=== PATIENT | female | born 1975 | race Caucasian/White ===

== ENCOUNTER 2021-08-13 13:27 | Outpatient (CLI) | payer BC, SELFPAY ==
--- NOTE | ~2021-08-13 | US_ITS ---
EXAMINATION: US thyroid EXAM DATE: 08/13/2021 13:57 INDICATION: Localized Neck Swelling, Mass And lump. TECHNIQUE: Multiple grayscale and Doppler images of the thyroid were obtained (by a technologist who performed the scan) and subsequently reviewed. Individual nodules and recommendations may be reporte d in accordance with TI-RADS system as designated by the 2017 ACR White Paper TI-RADS committee. The re is no prior study for comparison. FINDINGS: The right thyroid lobe measures 5.2 x 1.4 x 1.6 cm, the left measuring 4.9 x 1.3 x 1.2 cm. There is h omogeneous thyroid echogenicity is expected amount of vascularity. No solid thyroid nodules. IMPRESSION: Mild thyromegaly. Reviewed, dictated and finalized at location A. ING PROPERTY MANAGER IMPRESSION: Mild thyromegaly.
== END 2021-08-13 13:28 | disposition home or self-care (01) ==
PROVIDERS: PCP Nurse Practitioner Family; Visit Provider Nurse Practitioner Family
DX: R22.1 Localized swelling, mass and lump, neck (principal)
CPT/HCPCS: 76536